=== PATIENT | female | born 1985 | race Caucasian/White ===

== ENCOUNTER 2022-03-24 20:21 | Inpatient (IN) ==
[2022-03-25] MEDS ORDERED: Naloxone 0.4 MG/ML INJ IVP PRN (00:11)
[2022-03-25] MEDS: Gabapentin 100 MG CAPSULE PO SCH ×4 (00:30→21:45)
[2022-03-25] MEDS: Melatonin 3 MG TABLET PO PRN ×2 (00:31→21:46)
[2022-03-25] MEDS: traZODone 50 MG TABLET PO PRN ×2 (00:32→21:46)
[2022-03-25] MEDS: cefTRIAXone 1,000 MG in 0.9 % Sodium Chloride 10 ML IVP SCH ×2 (00:43→23:26)
[2022-03-25 04:15] LABS: Basophils % 0.6 %; Eosinophils # 0.2 K/mcL (0.0-0.6); Eosinophils % 2.3 %; Hemoglobin 7.3 g/dL (11.5-15.4); Immature Granulocytes % 0.3 % (0-4); Lymphocytes # 1.5 K/mcL (0.6-4.6); Lymphocytes % 22.2 %; Mean Corpuscular HGB Conc 34.8 g/dL (31.6-35.5); Mean Corpuscular Hemoglobin 30.9 pg (28.0-33.3); Monocytes # 0.7 K/mcL (0.0-1.3); Monocytes % 10.2 %; Neutrophils # 4.4 K/mcL (1.6-8.9); Platelet Count 142 K/mcL (140-400); Red Blood Count 2.36 M/mcL (3.82-4.97); Red Cell Distribution Width 16.1 % (11.5-14.5); Segmented Neutrophils % 64.4 %; White Blood Count 6.8 K/mcL (4.3-11.1)
[2022-03-25 04:31] LABS: Alanine Aminotransferase 20 Units/L (7-52); Albumin 3.1 g/dL (3.5-5.7); Albumin/Globulin Ratio 1.6 (1.1-2.2); Alkaline Phosphatase 96 Units/L (34-104); Aspartate Amino Transferase 33 Units/L (13-39); BUN/Creatinine Ratio 22 (6-26); Bilirubin,Direct 1.1 mg/dL (0.0-0.2); Bilirubin,Indirect 1.4 mg/dL (0.0-1.0); Bilirubin,Total 2.5 mg/dL (0.3-1.0); Blood Urea Nitrogen 21 mg/dL (6-20); Calcium 8.5 mg/dL (8.6-10.3); Carbon Dioxide 24 mEq/L (23-29); Chloride 102 mEq/L (98-107); Globulin 1.9 g/dL (2.4-3.5); Glucose 150 mg/dL (70-105); Osmolality,Calculated 280 (280-300); Sodium 132 mEq/L (136-145); eGFR For African Americans > 60 (> 60); eGFR For Non-African Americans > 60 (> 60)
[2022-03-25 04:32] LABS: Phosphorous 3.5 mg/dL (2.7-4.5)
[2022-03-25 04:51] LABS: Platelet Estimate Normal (Normal)
[2022-03-25] MEDS ORDERED: *HR* OxyCODONE Immed Rel 5 MG TABLET PO PRN (15:13)
[2022-03-25] MEDS ORDERED: Ibuprofen 400 MG TABLET PO PRN (15:13)
[2022-03-25] MEDS: Lactulose Oral Soln 20 GM/30 ML UDC PO SCH (21:45)
[2022-03-25] MEDS ORDERED: CefTRIAXone 1,000 MG VIAL ONE (23:15)
[2022-03-26] MEDS ORDERED: Albumin 25% 25gram/100mL 25 GM/100 ML IV.SOLN IVPB ONE ×2 (01:05→03:08)
[2022-03-26 04:57] LABS: Hematocrit 20.6 % (35.3-44.9); Hemoglobin 6.8 g/dL (11.5-15.4); Mean Corpuscular Hemoglobin 30.2 pg (28.0-33.3); Mean Corpuscular Volume 91.6 fL (83.0-100.0); Mean Platelet Volume 8.4 fL (9.4-12.4); Platelet Count 137 K/mcL (140-400); Red Blood Count 2.25 M/mcL (3.82-4.97); Red Cell Distribution Width 16.5 % (11.5-14.5); White Blood Count 5.7 K/mcL (4.3-11.1)
[2022-03-26 05:24] LABS: Alanine Aminotransferase 17 Units/L (7-52); Albumin 3.8 g/dL (3.5-5.7); Albumin/Globulin Ratio 2.1 (1.1-2.2); Alkaline Phosphatase 137 Units/L (34-104); Aspartate Amino Transferase 30 Units/L (13-39); BUN/Creatinine Ratio 18 (6-26); Bilirubin,Direct 0.9 mg/dL (0.0-0.2); Bilirubin,Indirect 1.2 mg/dL (0.0-1.0); Bilirubin,Total 2.1 mg/dL (0.3-1.0); Blood Urea Nitrogen 18 mg/dL (6-20); Carbon Dioxide 22 mEq/L (23-29); Chloride 103 mEq/L (98-107); Globulin 1.8 g/dL (2.4-3.5); Glucose 194 mg/dL (70-105); Osmolality,Calculated 283 (280-300); Potassium 3.8 mEq/L (3.5-5.1); Sodium 133 mEq/L (136-145); Total Protein 5.6 g/dL (6.4-8.9); eGFR For African Americans > 60 (> 60); eGFR For Non-African Americans > 60 (> 60)
[2022-03-26] MEDS ORDERED: 0.9 % Sodium Chloride 250 ML ONE (06:28)
[2022-03-26 07:56] LABS: % Iron Saturation 19 % (15-50); Iron 36 mcg/dL (50-170); Transferrin 136 mg/dL (203-362)
[2022-03-26 08:05] LABS: Prealbumin 5.9 mg/dL (17.0-34.0)
[2022-03-26 08:23] LABS: Folate 17.9 ng/mL (3.0-16.0)
[2022-03-26] MEDS: Gabapentin 100 MG CAPSULE PO SCH ×3 (08:49→21:54)
[2022-03-26] MEDS: Lactulose Oral Soln 20 GM/30 ML UDC PO SCH ×2 (08:49→21:55)
[2022-03-26] MEDS: Melatonin 3 MG TABLET PO PRN (21:53)
[2022-03-26] MEDS: traZODone 50 MG TABLET PO PRN (21:53)
[2022-03-26 21:57] LABS: Adenovirus F 40/41 PCR Not detected (Not detect); Astrovirus PCR Not detected (Not detect); C.difficile Toxin A/B Gene PCR Not detected (Not detect); Campylobacter by PCR Not detected (Not detect); Cryptosporidium by PCR Not detected (Not detect); Cyclospora cayetanensis PCR Not detected (Not detect); Entamoeba histolytica PCR Not detected (Not detect); Enteroaggregative E.coli(EAEC) Not detected (Not detect); Enteropathogenic E.coli(EPEC) Not detected (Not detect); Enterotoxigenic E.coli (ETEC) Not detected (Not detect); Giardia lamblia PCR Not detected (Not detect); Norovirus GI/GII PCR Not detected (Not detect); Plesiomonas shigelloides PCR Not detected (Not detect); Rotavirus A PCR Not detected (Not detect); Salmonella PCR Not detected (Not detect); Sapovirus PCR Not detected (Not detect); Shig/EnteroinvasiveE coli EIEC Not detected (Not detect); Shigalike tox-prod E coli STEC Not detected (Not detect); Vibrio PCR Not detected (Not detect); Vibrio cholerae PCR Not detected (Not detect); Yersinia enterocolitica PCR Not detected (Not detect)
[2022-03-26] MEDS: Furosemide 20 MG TABLET PO SCH (21:57)
[2022-03-27] MEDS: cefTRIAXone 1,000 MG in 0.9 % Sodium Chloride 10 ML IVP SCH (00:22)
[2022-03-27 05:10] LABS: INR 1.7; Prothrombin Time 19.3 Seconds (9.4-12.1)
[2022-03-27 05:25] LABS: Alanine Aminotransferase 17 Units/L (7-52); Albumin 3.4 g/dL (3.5-5.7); Alkaline Phosphatase 122 Units/L (34-104); Aspartate Amino Transferase 27 Units/L (13-39); BUN/Creatinine Ratio 18 (6-26); Bilirubin,Total 2.9 mg/dL (0.3-1.0); Blood Urea Nitrogen 14 mg/dL (6-20); Calcium 8.5 mg/dL (8.6-10.3); Carbon Dioxide 23 mEq/L (23-29); Chloride 104 mEq/L (98-107); Globulin 1.7 g/dL (2.4-3.5); Glucose 130 mg/dL (70-105); Osmolality,Calculated 280 (280-300); Potassium 3.3 mEq/L (3.5-5.1); Sodium 134 mEq/L (136-145); Total Protein 5.1 g/dL (6.4-8.9); eGFR For African Americans > 60 (> 60); eGFR For Non-African Americans > 60 (> 60)
[2022-03-27] MEDS: Furosemide 20 MG TABLET PO SCH ×2 (09:10→16:47)
[2022-03-27] MEDS: cefTRIAXone 1,000 MG in 0.9 % Sodium Chloride Mini Bag 100 ML IVPB SCH ×2 (09:10→20:17)
[2022-03-27] MEDS: Lactulose Oral Soln 20 GM/30 ML UDC PO SCH ×2 (09:10→20:18)
[2022-03-27] MEDS: Gabapentin 100 MG CAPSULE PO SCH ×3 (09:10→20:09)
[2022-03-27 10:54] LABS: Basophils # 0.1 K/mcL (0.0-0.2); Eosinophils # 0.2 K/mcL (0.0-0.6); Eosinophils % 2.8 %; Hematocrit 24.5 % (35.3-44.9); Hemoglobin 8.3 g/dL (11.5-15.4); Immature Granulocytes % 0.2 % (0-4); Lymphocytes % 17.2 %; Mean Corpuscular HGB Conc 33.9 g/dL (31.6-35.5); Mean Corpuscular Hemoglobin 31.1 pg (28.0-33.3); Mean Corpuscular Volume 91.8 fL (83.0-100.0); Mean Platelet Volume 8.1 fL (9.4-12.4); Monocytes # 0.6 K/mcL (0.0-1.3); Monocytes % 10.7 %; Platelet Count 123 K/mcL (140-400); Red Blood Count 2.67 M/mcL (3.82-4.97); Segmented Neutrophils % 68.1 %; White Blood Count 5.8 K/mcL (4.3-11.1)
[2022-03-27] MEDS ORDERED: Saline Nasal Spray 44 ML BOTTLE NS PRN (13:37)
[2022-03-27] MEDS ORDERED: BETHANECHOL CHLORIDE 10 MG PO SCH (15:00)
[2022-03-27] MEDS ORDERED: Ondansetron ODT 4 MG TAB.RAPDIS SL PRN (15:34)
[2022-03-27 15:58] LABS: Hematocrit 24.1 % (35.3-44.9); Hemoglobin 8.3 g/dL (11.5-15.4)
[2022-03-27] MEDS ORDERED: Ondansetron ODT 4 MG TAB.RAPDIS SL SCH (18:00)
[2022-03-27] MEDS: Mirtazapine 15 MG TABLET PO SCH (20:10)
[2022-03-27] MEDS: Magnesium Oxide 400 MG TABLET PO SCH (20:10)
[2022-03-27] MEDS: Melatonin 3 MG TABLET PO SCH (20:11)
[2022-03-27] MEDS: traZODone 50 MG TABLET PO PRN (20:14)
[2022-03-27] MEDS: QUEtiapine Fumarate 25 MG TABLET PO SCH (20:15)
[2022-03-27] MEDS ORDERED: NON-FORMULARY MEDICATION 1 EACH EACH (Pantoprazole Sodium [Protonix] 40 MG Tablet.Dr) PO SCH (21:00)
[2022-03-28 05:19] LABS: Basophils % 0.9 %; Eosinophils # 0.2 K/mcL (0.0-0.6); Eosinophils % 3.7 %; Hematocrit 23.4 % (35.3-44.9); Hemoglobin 7.8 g/dL (11.5-15.4); Immature Granulocytes % 0.2 % (0-4); Lymphocytes # 1.1 K/mcL (0.6-4.6); Lymphocytes % 24.8 %; Mean Corpuscular HGB Conc 33.3 g/dL (31.6-35.5); Mean Corpuscular Hemoglobin 31.2 pg (28.0-33.3); Mean Corpuscular Volume 93.6 fL (83.0-100.0); Mean Platelet Volume 8.1 fL (9.4-12.4); Monocytes # 0.4 K/mcL (0.0-1.3); Monocytes % 10.3 %; Neutrophils # 2.6 K/mcL (1.6-8.9); Platelet Count 114 K/mcL (140-400); Red Cell Distribution Width 16.3 % (11.5-14.5); Segmented Neutrophils % 60.1 %; White Blood Count 4.3 K/mcL (4.3-11.1)
[2022-03-28 05:20] LABS: INR 1.9; Prothrombin Time 20.8 Seconds (9.4-12.1)
[2022-03-28 05:29] LABS: BUN/Creatinine Ratio 18 (6-26); Blood Urea Nitrogen 13 mg/dL (6-20); Calcium 8.4 mg/dL (8.6-10.3); Carbon Dioxide 22 mEq/L (23-29); Chloride 105 mEq/L (98-107); Glucose 189 mg/dL (70-105); Osmolality,Calculated 285 (280-300); Potassium 3.7 mEq/L (3.5-5.1); Sodium 135 mEq/L (136-145); eGFR For African Americans > 60 (> 60); eGFR For Non-African Americans > 60 (> 60)
[2022-03-28] MEDS: cefTRIAXone 1,000 MG in 0.9 % Sodium Chloride Mini Bag 100 ML IVPB SCH ×2 (07:28→21:09)
[2022-03-28] MEDS: Magnesium Oxide 400 MG TABLET PO SCH ×2 (07:29→21:11)
[2022-03-28] MEDS: Gabapentin 100 MG CAPSULE PO SCH ×3 (07:29→21:10)
[2022-03-28] MEDS: Furosemide 20 MG TABLET PO SCH ×2 (07:29→17:01)
[2022-03-28] MEDS: Lactulose Oral Soln 20 GM/30 ML UDC PO SCH ×3 (07:29→21:55)
[2022-03-28] MEDS: Cholecalciferol (D-3) 1,000 UNIT (25MCG) TABLET PO SCH (08:09)
[2022-03-28] MEDS: Multivit/Ca/Min/Fe/FA 1 TAB TABLET PO SCH (08:09)
[2022-03-28] MEDS ORDERED: Multivit/Ca/Min/Fe/FA 1 TAB TABLET PO SCH (09:00)
[2022-03-28] MEDS ORDERED: Cholecalciferol (D-3) 1,000 UNIT (25MCG) TABLET PO SCH (09:00)
[2022-03-28] MEDS ORDERED: Furosemide 20 MG TABLET PO SCH (09:00)
[2022-03-28] MEDS: QUEtiapine Fumarate 25 MG TABLET PO SCH (21:10)
[2022-03-28] MEDS: Melatonin 3 MG TABLET PO SCH (21:11)
[2022-03-28] MEDS: traZODone 50 MG TABLET PO SCH (21:11)
[2022-03-28] MEDS: Mirtazapine 15 MG TABLET PO SCH (21:12)
[2022-03-29 05:56] LABS: Basophils % 0.8 %; Eosinophils # 0.1 K/mcL (0.0-0.6); Eosinophils % 2.3 %; Hematocrit 23.9 % (35.3-44.9); Immature Granulocytes % 0.4 % (0-4); Lymphocytes # 1.1 K/mcL (0.6-4.6); Lymphocytes % 20.5 %; Mean Corpuscular HGB Conc 33.5 g/dL (31.6-35.5); Mean Corpuscular Volume 92.6 fL (83.0-100.0); Mean Platelet Volume 8.3 fL (9.4-12.4); Monocytes # 0.6 K/mcL (0.0-1.3); Monocytes % 11.9 %; Neutrophils # 3.3 K/mcL (1.6-8.9); Platelet Count 117 K/mcL (140-400); Red Blood Count 2.58 M/mcL (3.82-4.97); Red Cell Distribution Width 16.2 % (11.5-14.5); Segmented Neutrophils % 64.1 %; White Blood Count 5.1 K/mcL (4.3-11.1)
[2022-03-29 06:01] LABS: INR 1.7; Prothrombin Time 19.2 Seconds (9.4-12.1)
[2022-03-29 06:15] LABS: Alanine Aminotransferase 16 Units/L (7-52); Albumin 3.3 g/dL (3.5-5.7); Albumin/Globulin Ratio 2.2 (1.1-2.2); Alkaline Phosphatase 113 Units/L (34-104); Aspartate Amino Transferase 25 Units/L (13-39); BUN/Creatinine Ratio 19 (6-26); Bilirubin,Total 2.4 mg/dL (0.3-1.0); Blood Urea Nitrogen 14 mg/dL (6-20); Carbon Dioxide 27 mEq/L (23-29); Chloride 104 mEq/L (98-107); Globulin 1.5 g/dL (2.4-3.5); Glucose 84 mg/dL (70-105); Osmolality,Calculated 282 (280-300); Potassium 4.2 mEq/L (3.5-5.1); Sodium 136 mEq/L (136-145); Total Protein 4.8 g/dL (6.4-8.9); eGFR For African Americans > 60 (> 60); eGFR For Non-African Americans > 60 (> 60)
[2022-03-29] MEDS: Multivit/Ca/Min/Fe/FA 1 TAB TABLET PO SCH (08:21)
[2022-03-29] MEDS: Cholecalciferol (D-3) 1,000 UNIT (25MCG) TABLET PO SCH (08:22)
[2022-03-29] MEDS: Furosemide 20 MG TABLET PO SCH ×2 (08:22→17:10)
[2022-03-29] MEDS: Magnesium Oxide 400 MG TABLET PO SCH ×2 (08:22→21:05)
[2022-03-29] MEDS: Gabapentin 100 MG CAPSULE PO SCH ×3 (08:22→21:03)
[2022-03-29] MEDS: cefTRIAXone 1,000 MG in 0.9 % Sodium Chloride Mini Bag 100 ML IVPB SCH (08:23)
[2022-03-29] MEDS: Lactulose Oral Soln 20 GM/30 ML UDC PO SCH ×2 (08:23→21:06)
[2022-03-29] MEDS: traZODone 50 MG TABLET PO SCH (21:03)
[2022-03-29] MEDS: Cefdinir 300 MG CAPSULE PO SCH (21:03)
[2022-03-29] MEDS: Mirtazapine 15 MG TABLET PO SCH (21:04)
[2022-03-29] MEDS: Melatonin 3 MG TABLET PO SCH (21:05)
[2022-03-29] MEDS: QUEtiapine Fumarate 25 MG TABLET PO SCH (21:05)
[2022-03-30 07:18] LABS: Basophils # 0.1 K/mcL (0.0-0.2); Basophils % 1.1 %; Eosinophils # 0.1 K/mcL (0.0-0.6); Eosinophils % 2.4 %; Hematocrit 24.9 % (35.3-44.9); Hemoglobin 8.3 g/dL (11.5-15.4); Immature Granulocytes % 0.2 % (0-4); Lymphocytes # 1.1 K/mcL (0.6-4.6); Lymphocytes % 22.9 %; Mean Corpuscular HGB Conc 33.3 g/dL (31.6-35.5); Mean Corpuscular Volume 92.9 fL (83.0-100.0); Mean Platelet Volume 9.3 fL (9.4-12.4); Monocytes # 0.5 K/mcL (0.0-1.3); Monocytes % 10.6 %; Neutrophils # 2.9 K/mcL (1.6-8.9); Platelet Count 124 K/mcL (140-400); Red Blood Count 2.68 M/mcL (3.82-4.97); Red Cell Distribution Width 16.5 % (11.5-14.5); Segmented Neutrophils % 62.8 %; White Blood Count 4.6 K/mcL (4.3-11.1)
[2022-03-30 08:09] LABS: Alanine Aminotransferase 17 Units/L (7-52); Albumin 3.1 g/dL (3.5-5.7); Albumin/Globulin Ratio 1.6 (1.1-2.2); Alkaline Phosphatase 103 Units/L (34-104); Aspartate Amino Transferase 26 Units/L (13-39); BUN/Creatinine Ratio 20 (6-26); Blood Urea Nitrogen 13 mg/dL (6-20); Calcium 9.1 mg/dL (8.6-10.3); Carbon Dioxide 27 mEq/L (23-29); Chloride 103 mEq/L (98-107); Glucose 124 mg/dL (70-105); Osmolality,Calculated 280 (280-300); Potassium 4.3 mEq/L (3.5-5.1); Sodium 134 mEq/L (136-145); Total Protein 5.1 g/dL (6.4-8.9); eGFR For African Americans > 60 (> 60); eGFR For Non-African Americans > 60 (> 60)
[2022-03-30] MEDS: Cholecalciferol (D-3) 1,000 UNIT (25MCG) TABLET PO SCH (08:22)
[2022-03-30] MEDS: Gabapentin 100 MG CAPSULE PO SCH ×3 (08:22→21:34)
[2022-03-30] MEDS: Multivit/Ca/Min/Fe/FA 1 TAB TABLET PO SCH (08:22)
[2022-03-30] MEDS: Cefdinir 300 MG CAPSULE PO SCH ×2 (08:22→21:35)
[2022-03-30] MEDS: Furosemide 20 MG TABLET PO SCH ×2 (08:23→16:44)
[2022-03-30] MEDS: Magnesium Oxide 400 MG TABLET PO SCH ×2 (08:23→21:35)
[2022-03-30] MEDS: Lactulose Oral Soln 20 GM/30 ML UDC PO SCH ×3 (08:26→21:35)
[2022-03-30] MEDS: QUEtiapine Fumarate 25 MG TABLET PO SCH (21:33)
[2022-03-30] MEDS: traZODone 50 MG TABLET PO SCH (21:34)
[2022-03-30] MEDS: Melatonin 3 MG TABLET PO SCH (21:35)
[2022-03-30] MEDS: Mirtazapine 15 MG TABLET PO SCH (21:35)
[2022-03-31 06:03] LABS: Basophils % 0.8 %; Eosinophils # 0.1 K/mcL (0.0-0.6); Eosinophils % 2.2 %; Hematocrit 24.1 % (35.3-44.9); Hemoglobin 7.9 g/dL (11.5-15.4); Immature Granulocytes % 0.2 % (0-4); Lymphocytes % 19.6 %; Mean Corpuscular HGB Conc 32.8 g/dL (31.6-35.5); Mean Corpuscular Hemoglobin 30.9 pg (28.0-33.3); Mean Corpuscular Volume 94.1 fL (83.0-100.0); Mean Platelet Volume 8.1 fL (9.4-12.4); Monocytes # 0.6 K/mcL (0.0-1.3); Monocytes % 12.1 %; Neutrophils # 3.2 K/mcL (1.6-8.9); Platelet Count 120 K/mcL (140-400); Red Blood Count 2.56 M/mcL (3.82-4.97); Segmented Neutrophils % 65.1 %; White Blood Count 4.9 K/mcL (4.3-11.1)
[2022-03-31 06:14] LABS: INR 1.9; Prothrombin Time 21.5 Seconds (9.4-12.1)
[2022-03-31 06:24] LABS: Alanine Aminotransferase 16 Units/L (7-52); Albumin/Globulin Ratio 1.6 (1.1-2.2); Alkaline Phosphatase 116 Units/L (34-104); Aspartate Amino Transferase 25 Units/L (13-39); BUN/Creatinine Ratio 18 (6-26); Bilirubin,Total 2.6 mg/dL (0.3-1.0); Blood Urea Nitrogen 14 mg/dL (6-20); Calcium 8.6 mg/dL (8.6-10.3); Carbon Dioxide 27 mEq/L (23-29); Chloride 102 mEq/L (98-107); Globulin 1.9 g/dL (2.4-3.5); Glucose 138 mg/dL (70-105); Osmolality,Calculated 285 (280-300); Sodium 136 mEq/L (136-145); Total Protein 4.9 g/dL (6.4-8.9); eGFR For African Americans > 60 (> 60); eGFR For Non-African Americans > 60 (> 60)
[2022-03-31] MEDS: Gabapentin 100 MG CAPSULE PO SCH ×2 (09:45→15:25)
[2022-03-31] MEDS: Furosemide 20 MG TABLET PO SCH ×2 (09:45→15:15)
[2022-03-31] MEDS: Cefdinir 300 MG CAPSULE PO SCH (09:45)
[2022-03-31] MEDS: Cholecalciferol (D-3) 1,000 UNIT (25MCG) TABLET PO SCH (09:45)
[2022-03-31] MEDS: Multivit/Ca/Min/Fe/FA 1 TAB TABLET PO SCH (09:45)
[2022-03-31] MEDS: Lactulose Oral Soln 20 GM/30 ML UDC PO SCH ×2 (09:46→15:14)
[2022-03-31] MEDS: Magnesium Oxide 400 MG TABLET PO SCH (09:46)
[2022-03-31 15:31] VITALS: BP 113/65; PULSE 105; RESP 16; TEMP 98.9; O2SAT 93
== END 2022-03-31 18:00 ==
LOC: INPGRE
PROVIDERS: ADMIT Family Medicine; ATTEND Family Medicine